=== PATIENT | female | born 1985 ===

== ENCOUNTER 2017-06-13 12:03 | Emergency (ER) | payer OTHER ==
[~2017-06-13] VITALS: Ht 154.9 cm; Wt 59.0 kg
[~2017-06-13 12:03] MED LIST: ACIDOPHILUS1 EAC1 PO; AMOX1TAB12 PO
[2017-06-13] MEDS ORDERED: ZITHROMAX500 MG PO (16:51)
== END 2017-06-13 17:14 | disposition home or self-care (01) ==
LOC: ER 12:03
DX: B34.9 Viral infection, unspecified (principal); J32.8 Other chronic sinusitis

== ENCOUNTER 2017-07-09 13:47 | Emergency (ER) | payer OTHER ==
[~2017-07-09] VITALS: Ht 154.9 cm; Wt 61.2 kg
[~2017-07-09 13:47] MED LIST changes: +ZITHROMAX500 MG PO
== END 2017-07-09 17:28 | disposition home or self-care (01) ==
LOC: ER 13:47
DX: B34.9 Viral infection, unspecified (principal); J06.9 Acute upper respiratory infection, unspecified

== ENCOUNTER 2018-05-15 11:56 | Emergency (ER) | payer OTHER ==
[~2018-05-15] VITALS: Ht 154.9 cm; Wt 59.0 kg
== END 2018-05-15 15:53 | disposition home or self-care (01) ==
LOC: ER 11:56
DX: J01.80 Other acute sinusitis (principal)

== ENCOUNTER 2019-01-19 07:35 | Emergency (ER) | payer OTHER ==
[~2019-01-19] VITALS: Ht 154.9 cm; Wt 56.7 kg
== END 2019-01-19 12:45 | disposition home or self-care (01) ==
LOC: ER 07:35
DX: O21.0 Mild hyperemesis gravidarum (principal); Z34.81 Encounter for supervision of other normal pregnancy, first trimester

== ENCOUNTER 2019-01-24 09:56 | Emergency (ER) | payer OTHER ==
[~2019-01-24] VITALS: Ht 154.9 cm; Wt 56.7 kg
== END 2019-01-24 13:42 | disposition home or self-care (01) ==
LOC: ER 09:56
DX: O21.0 Mild hyperemesis gravidarum (principal); Z34.01 Encounter for supervision of normal first pregnancy, first trimester

== ENCOUNTER 2019-02-03 09:15 | Emergency (ER) | payer OTHER ==
[~2019-02-03] VITALS: Ht 154.9 cm; Wt 56.7 kg
[2019-02-03] MEDS ORDERED: PRENATABS FA T1 EACH (09:35)
[2019-02-03] MEDS ORDERED: ZOFRAN4 MG PO (14:36)
[2019-02-03] MEDS ORDERED: PEPCID20 MG PO (14:36)
== END 2019-02-03 18:07 | disposition home or self-care (01) ==
LOC: ER 09:15
DX: R11.2 Nausea with vomiting, unspecified (principal)

== ENCOUNTER 2019-07-08 16:57 | Emergency (ER) | payer OTHER ==
[~2019-07-08] VITALS: Ht 154.9 cm; Wt 69.4 kg
[~2019-07-08 16:57] MED LIST changes: +PEPCID20 MG PO; +PRENATABS FA T1 EACH; +ZOFRAN4 MG PO
[2019-07-08] MEDS ORDERED: DICLEGIS DR 101 EACH (17:20)
== END 2019-07-08 21:34 | disposition home or self-care (01) ==
LOC: ER 16:57
DX: J11.00 Influenza due to unidentified influenza virus with unspecified type of pneumonia (principal); J18.9 Pneumonia, unspecified organism